=== PATIENT | female | born 1940 ===

== ENCOUNTER → 2016-07-28 | Outpatient (REF) ==
[~2016-07-28] MED LIST: ASPIRIN 81M81 MG/TA2 PO; DIABETA 5MG5 MG/TAB PO; FERRO-TIME325 MG PO; FOLIC ACID0.4 MG PO; INCRUSE EL62.5 MCG/A IH; LASIX 20MG TABL20 MG PO; LOPRESSOR 225 MG/TAB PO; MULTIPLE VITAMI1 CAP PO; NORVASC 10MG10 MG PO; RT ADVAIR 228 DISKUS IH; TYLENOL 325MG325 MG PO; VITAMIN E 400 U4001 PO; ZOCOR 80MG80 MG PO
[2016-07-28 11:43] LABS: THYROID STIMULATING HORMONE 1.23 uIU/mL (0.465-4.680)
== END ==
LOC: ZLAB.WCH 10:41
PROVIDERS: Internal Medicine
DX: Z01.89 Encounter for other specified special examinations (principal)

== ENCOUNTER 2016-10-23 11:01 | Inpatient (IN) | payer MEDICARE, MEDICAID ==
[~2016-10-23] VITALS: Ht 165.1 cm; Wt 88.5 kg
[2016-10-23] VITALS (60 sets, daily range): BP systolic 137; BP diastolic 56; PULSE 95; TEMP 97.7; O2SAT 91–100
[2016-10-23] MEDS ORDERED: LASIX 20MG TABL20 MG PO (17:31)
[2016-10-23] MEDS ORDERED: DIABETA 5MG5 MG/TAB PO (17:31)
[2016-10-23] MEDS ORDERED: NORVASC 10MG10 MG PO (17:31)
[2016-10-23] MEDS ORDERED: ZOCOR 80MG80 MG PO (17:32)
[2016-10-23] MEDS ORDERED: LOPRESSOR 225 MG/TAB PO (17:32)
[2016-10-23] MEDS ORDERED: ASPIRIN 81M81 MG/TA2 PO (17:32)
[2016-10-23] MEDS ORDERED: FOLIC ACID0.4 MG PO (17:33)
[2016-10-23] MEDS ORDERED: MULTIPLE VITAMI1 CAP PO (17:33)
[2016-10-23] MEDS ORDERED: FERRO-TIME325 MG PO (17:33)
[2016-10-23] MEDS ORDERED: VITAMIN E 400 U4001 PO (17:34)
[2016-10-23] MEDS ORDERED: TYLENOL 325MG325 MG PO (17:34)
[2016-10-23] MEDS ORDERED: INCRUSE EL62.5 MCG/A IH (17:34)
[2016-10-23] MEDS ORDERED: RT ADVAIR 228 DISKUS IH (17:35)
[2016-10-23 20:31] LABS: ARTERIAL BLD GAS O2 SATURATION 70.6 % (92-100); ARTERIAL BLD GAS TCO2 CT 18.1; ARTERIAL BLOOD GAS BASE EXCESS -5.1 (-2-2); ARTERIAL BLOOD GAS HCO3 17.3 meq/L (22-26); ARTERIAL BLOOD GAS PHT 7.46 C (7.35-7.45); ARTERIAL BLOOD GAS pH 7.46 (7.35-7.45); OXYHEMOGLOBIN 69.6 %
[2016-10-23 20:32] LABS: ALLEN TEST YES; ALLENS TEST RESULT PASS; ARTERIAL BLOOD GAS PO2 35.5 mmHg (80-100); ARTERIAL BLOOD GAS PO2T 35.5 (80-100); ATS? YES
[2016-10-23 22:11] LABS: ARTERIAL BLD GAS O2 SATURATION 85.4 % (92-100); ARTERIAL BLD GAS TCO2 CT 21.3; ARTERIAL BLOOD GAS BASE EXCESS -3.1 (-2-2); ARTERIAL BLOOD GAS HCO3 20.4 meq/L (22-26); ARTERIAL BLOOD GAS PHT 7.43 C (7.35-7.45); ARTERIAL BLOOD GAS PO2 49.9 mmHg (80-100); ARTERIAL BLOOD GAS PO2T 49.9 (80-100); ARTERIAL BLOOD GAS pH 7.43 (7.35-7.45); OXYHEMOGLOBIN 84.1 %
[2016-10-23 22:12] LABS: ALLEN TEST YES; ALLENS TEST RESULT PASS; ATS? YES
[2016-10-23 23:13] LABS: INFLUENZA B NEGATIVE
[2016-10-24] VITALS (1265 sets, daily range): BP systolic 100–118; BP diastolic 52–66; PULSE 86–99; TEMP 98.1–98.6; O2SAT 72–100
[2016-10-24 00:16] LABS: ARTERIAL BLD GAS O2 SATURATION 95.5 % (92-100); ARTERIAL BLD GAS TCO2 CT 21.2; ARTERIAL BLOOD GAS BASE EXCESS -2.9 (-2-2); ARTERIAL BLOOD GAS HCO3 20.3 meq/L (22-26); ARTERIAL BLOOD GAS PHT 7.44 C (7.35-7.45); ARTERIAL BLOOD GAS PO2 81.1 mmHg (80-100); ARTERIAL BLOOD GAS PO2T 81.1 (80-100); ARTERIAL BLOOD GAS pH 7.44 (7.35-7.45); OXYHEMOGLOBIN 94.5 %
[2016-10-24 00:17] LABS: ALLEN TEST YES; ATS? YES
[2016-10-24 00:18] LABS: ALLENS TEST RESULT PASS
[2016-10-24 05:06] LABS: ARTERIAL BLD GAS O2 SATURATION 96.4 % (92-100); ARTERIAL BLD GAS TCO2 CT 20.9; ARTERIAL BLOOD GAS BASE EXCESS -3.8 (-2-2); ARTERIAL BLOOD GAS HCO3 19.9 meq/L (22-26); ARTERIAL BLOOD GAS PHT 7.42 C (7.35-7.45); ARTERIAL BLOOD GAS PO2 91.5 mmHg (80-100); ARTERIAL BLOOD GAS PO2T 91.5 (80-100); ARTERIAL BLOOD GAS pH 7.42 (7.35-7.45); OXYHEMOGLOBIN 95.6 %
[2016-10-24 05:07] LABS: ALLEN TEST YES; ALLENS TEST RESULT PASS; ATS? YES
[2016-10-24 05:45] LABS: BASO % 0.1 % (0.0-2.0); GRAN # 14.8 (1.4-6.5); GRAN % 93.1 % (42.2-75.2); HEMOGLOBIN 10.7 g/dl (12.5-16.0); LYMPH # 0.2 (1.2-3.4); LYMPH % 0.9 % (20.0-51.0); MEAN CELL VOLUME 89 fl (80.0-100.0); MEAN CORPUSCULAR HEMOGLOBIN 30 pg (27.0-31.0); MEAN CORPUSCULAR HGB CONC 33 g/dl (33.0-37.0); MEAN PLATELET VOLUME 10.1 fl (7.4-10.4); MONO # 0.8 (0.1-0.6); MONO % 4.8 % (1.7-9.3); PLATELET COUNT 205 K/mm3 (130-400); REDCELL DISTRIBUTION WIDTH-CV 13.9 % (11.5-14.5); WHITE BLOOD COUNT 15.9 K/mm3 (4.8-10.8)
[2016-10-24 07:30] LABS: CREATININE, serum 1.56 mg/dL (0.52-1.25); MAGNESIUM 2.2 mg/dL (1.6-2.3); PHOSPHOROUS 4.1 mg/dL (2.5-4.5); POTASSIUM 3.9 mmol/L (3.4-5.0)
[2016-10-24 12:09] LABS: INR 1.5 (0.8-3.0); PARTIAL THROMBOPLASTIN TIME 29.5 SECONDS (26.0-37.0)
[2016-10-24 18:11] LABS: ARTERIAL BLD GAS O2 SATURATION 82.6 % (92-100); ARTERIAL BLD GAS TCO2 CT 20.3; ARTERIAL BLOOD GAS BASE EXCESS -4.9 (-2-2); ARTERIAL BLOOD GAS HCO3 19.3 meq/L (22-26); ARTERIAL BLOOD GAS PHT 7.39 C (7.35-7.45); ARTERIAL BLOOD GAS pH 7.39 (7.35-7.45); OXYHEMOGLOBIN 81.9 %
[2016-10-24 18:12] LABS: ARTERIAL BLOOD GAS PO2 46.7 mmHg (80-100); ARTERIAL BLOOD GAS PO2T 46.7 (80-100); ATS? YES
[2016-10-25] VITALS (1278 sets, daily range): BP systolic 71–112; BP diastolic 36–66; PULSE 86–95; TEMP 98.1–98.4; O2SAT 72–100
[2016-10-25 05:29] LABS: BASO % 0.1 % (0.0-2.0); GRAN # 13.4 (1.4-6.5); GRAN % 91.2 % (42.2-75.2); LYMPH # 0.2 (1.2-3.4); LYMPH % 1.2 % (20.0-51.0); MEAN CELL VOLUME 91 fl (80.0-100.0); MEAN CORPUSCULAR HGB CONC 33 g/dl (33.0-37.0); MONO % 6.7 % (1.7-9.3); PLATELET COUNT 192 K/mm3 (130-400); RED BLOOD COUNT 3.25 M/mm3 (4.10-5.30); REDCELL DISTRIBUTION WIDTH-CV 14.3 % (11.5-14.5); WHITE BLOOD COUNT 14.7 K/mm3 (4.8-10.8)
[2016-10-25 05:40] LABS: ADJUSTED CALCIUM 9.3 mg/dL (8.4-10.2); ALBUMIN 3.2 gm/dL (3.5-5.0); BILIRUBIN,TOTAL 0.8 mg/dL (0.0-1.0); CALCIUM 8.7 mg/dL (8.4-10.2); CREATININE, serum 1.43 mg/dL (0.52-1.25); POTASSIUM 4.5 mmol/L (3.4-5.0); TOTAL PROTEIN 6.5 gm/dL (6.4-8.2)
[2016-10-25 05:41] LABS: HEMATOCRIT 29.5 % (37.0-47.0); HEMOGLOBIN 9.7 g/dl (12.5-16.0); MEAN CORPUSCULAR HEMOGLOBIN 30 pg (27.0-31.0)
[2016-10-25 05:57] LABS: TROPONIN-I 0.119 ng/mL (0.000-0.034)
[2016-10-25 10:01] LABS: ARTERIAL BLOOD GAS HCO3 20.7 meq/L (22-26); ARTERIAL BLOOD GAS PO2 52.7 mmHg (80-100); ARTERIAL BLOOD GAS pH 7.36 (7.35-7.45)
[2016-10-25 10:02] LABS: ARTERIAL BLD GAS O2 SATURATION 85.5 % (92-100); ARTERIAL BLD GAS TCO2 CT 37.2; ARTERIAL BLOOD GAS BASE EXCESS -4.2 (-2-2); ARTERIAL BLOOD GAS PHT 7.36 C (7.35-7.45); ARTERIAL BLOOD GAS PO2T 52.7 (80-100); ATS? YES
[2016-10-25 10:03] LABS: ALLEN TEST YES; ALLENS TEST RESULT PASS
[2016-10-26] VITALS (350 sets, daily range): BP systolic 64–68; BP diastolic 37–41; PULSE 74–84; O2SAT 60–100
== END 2016-10-26 12:09 | disposition expired | DRG 189 ==
LOC: MEDICAL 12:00 → ICU 20:51
PROVIDERS: Anesthesiology Critical Care Medicine; Internal Medicine; Internal Medicine Cardiovascular Disease; Surgery
PROC: 02HV33Z Insertion of Infusion Device into Superior Vena Cava, Percutaneous Approach (ICD-10-PCS; principal; 2016-10-24)
DX: J96.01 Acute respiratory failure with hypoxia (principal); J18.9 Pneumonia, unspecified organism; J44.1 Chronic obstructive pulmonary disease with (acute) exacerbation; Z51.5 Encounter for palliative care; Z66 Do not resuscitate; I12.9 Hypertensive chronic kidney disease with stage 1 through stage 4 chronic kidney disease, or unspecified chronic kidney disease; E11.22 Type 2 diabetes mellitus with diabetic chronic kidney disease; N18.3 Chronic kidney disease, stage 3 (moderate); E11.319 Type 2 diabetes mellitus with unspecified diabetic retinopathy without macular edema; Z87.891 Personal history of nicotine dependence; I05.0 Rheumatic mitral stenosis; I27.2 Other secondary pulmonary hypertension
CPT/HCPCS: 99238; A4315; C1751; J1644; J1650; J1815; J1940; J1956; J2060; J2270; J2405; J2930; Q9967

== ENCOUNTER → 2016-10-23 | Outpatient (REF) | LOC: ZLAB.WCH 08:51 | DX: Z01.89 Encounter for other specified special examinations (principal) ==